=== PATIENT | male | born 1955 | race Caucasian/White ===

== ENCOUNTER 2017-02-24 11:33 | Day surgery (SDC) | payer OTHER, BC ==
[~2017-02-24] VITALS: Ht 172.7 cm; Wt 74.5 kg
[~2017-02-24 11:33] MED LIST: ACET325; AMOCLA875 PO; ASPI81CH PO; Fish Oil500 M1 PO; LIDO2L MM; LISI20; METO50 PO; MORP60ER; MORP60ER PO; Norco 10-325 T1 EACH; OXYACE5T PO; Percocet 5-3251 EACH PO; RXOXYACE PO; TAMS.4ER PO; TRAZ100; Voltaren100 GM
[2017-02-24] MEDS ORDERED: FISH OIL 1,0001 EAC2 PO (11:59)
== END 2017-02-24 15:24 | disposition home or self-care (01) ==
LOC: ORSCSDS 11:33
PROVIDERS: Podiatrist Foot & Ankle Surgery
PROC: 0QBG0ZX Excision of Right Tibia, Open Approach, Diagnostic (ICD-10-PCS; principal; 2017-02-24 12:30)
PROC: 0SBF4ZZ Excision of Right Ankle Joint, Percutaneous Endoscopic Approach (ICD-10-PCS; principal; 2017-02-24 12:30)
PROC: 0SPF04Z Removal of Internal Fixation Device from Right Ankle Joint, Open Approach (ICD-10-PCS; principal; 2017-02-24 12:30)
PROC: 0QBJ0ZX Excision of Right Fibula, Open Approach, Diagnostic (ICD-10-PCS; principal; 2017-02-24 12:30)
DX: M25.771 Osteophyte, right ankle (principal); T84.84XA Pain due to internal orthopedic prosthetic devices, implants and grafts, initial encounter; I10 Essential (primary) hypertension; F17.210 Nicotine dependence, cigarettes, uncomplicated; Z79.899 Other long term (current) drug therapy
CPT/HCPCS: J0171; J0690; J2250; J2370; J2405; J3010; J7120

== ENCOUNTER 2020-01-24 07:51 | Day surgery (SDC) | payer OTHER ==
[~2020-01-24] VITALS: Ht 175.3 cm; Wt 83.7 kg
[~2020-01-24 07:51] MED LIST changes: +DHEA PO; +FISH OIL 1,0001 EAC2 PO; +FISH OIL GUMMI1 EAC1 PO; +Inderal 20 mg T20 MG PO; -LISI20; +LISI20 PO; +PREG150 PO; +PROBIOTIC250 MG PO; +ROSU10TA PO
== END 2020-01-24 10:05 | disposition home or self-care (01) ==
LOC: ORSCSDS 07:51
DX: Z12.11 Encounter for screening for malignant neoplasm of colon (principal); D12.2 Benign neoplasm of ascending colon; D12.3 Benign neoplasm of transverse colon; K57.30 Diverticulosis of large intestine without perforation or abscess without bleeding; K64.8 Other hemorrhoids; Z86.010 Personal history of colon polyps; I10 Essential (primary) hypertension; Z87.891 Personal history of nicotine dependence
CPT/HCPCS: 88305; J2704; J7120

== ENCOUNTER → 2020-07-12 | Outpatient (CLI) | payer OTHER ==
[2020-07-12 15:16] LABS: BASOPHILS ABSOLUTE AUTO 0.04 K/mm3 (0.00-0.23); BASOPHILS PERCENT AUTO 1 % (0-2); EOSINOPHILS ABSOLUTE AUTO 0.09 K/mm3 (0.00-0.68); EOSINOPHILS PERCENT AUTO 2 % (0-6); Hematocrit 42.1 % (37.0-53.0); Hemoglobin 14.3 g/dL (13.5-17.5); IMMATURE GRAN ABSOLUTE AUTO 0.01 K/mm3 (0.00-0.10); IMMATURE GRAN PERCENT AUTO 0 % (0-1); LYMPHOCYTES PERCENT AUTO 35 % (21-46); MONOCYTES ABSOLUTE AUTO 0.46 K/mm3 (0.16-1.47); MONOCYTES PERCENT AUTO 9 % (4-13); Mean Corpuscular HGB 32.1 pg (26.0-34.0); Mean Corpuscular Volume 95 fL (80-100); NEUTROPHILS ABSOLUTE AUTO 2.57 K/mm3 (1.96-9.15); NEUTROPHILS PERCENT AUTO 53 % (41-73); Platelet Count 223 K/mm3 (150-400); Red Blood Cell Count 4.45 M/mm3 (4.30-5.90); White Blood Cell Count 4.87 K/mm3 (4.00-11.30)
[2020-07-12 15:25] LABS: Albumin, Blood 4.2 g/dL (3.4-5.0); Albumin/Globulin Ratio 1.1 (0.8-1.8); Bilirubin, Total 0.5 mg/dL (0.1-1.0); Bun/Creatinine Ratio 24.1 (12.0-20.0); Calcium, Blood 9.2 mg/dL (8.5-10.1); Creatinine, Blood 1.33 mg/dL (0.60-1.20); Potassium, Blood 4.6 mmol/L (3.5-5.5); Total Protein, Blood 8.2 g/dL (6.4-8.2)
== END | disposition home or self-care (01) ==
LOC: LAB EV 15:09 → LAB SHORT 15:09
PROVIDERS: General Practice
DX: R07.89 Other chest pain (principal)
CPT/HCPCS: 80053; 85025; 85379

== ENCOUNTER → 2020-10-18 | Outpatient (CLI) | payer OTHER | LOC: LAB 15:58 → LAB SHORT 15:58 | DX: R07.89 Other chest pain (principal) | CPT/HCPCS: 84484 ==

== ENCOUNTER → 2021-03-14 | Outpatient (CLI) | payer OTHER ==
[2021-03-15 13:30] LABS: Microalbumin, Urine Quant. 18.2 mg/L (0.000-20.000); Protein, Urine Quantitative 17.1 mg/dL (0.0-11.9)
== END | disposition home or self-care (01) ==
LOC: LAB SHORT 10:46
PROVIDERS: Internal Medicine Nephrology
DX: N18.2 Chronic kidney disease, stage 2 (mild) (principal); D63.1 Anemia in chronic kidney disease; R80.9 Proteinuria, unspecified; N40.0 Benign prostatic hyperplasia without lower urinary tract symptoms
CPT/HCPCS: 81050; 82043; 82570; 84156

== ENCOUNTER 2022-04-30 21:13 | Emergency (ER) | payer OTHER ==
[~2022-04-30] VITALS: Ht 175.3 cm; Wt 88.9 kg
[2022-04-30] MEDS ORDERED: POTA8 PO (21:34)
[2022-04-30] MEDS ORDERED: FUROSEMIDE20 MG PO (21:34)
[2022-04-30] MEDS ORDERED: IBUP400 PO (22:40)
[2022-04-30] MEDS ORDERED: ACET500 PO (22:40)
[2022-04-30] MEDS ORDERED: ONDA4ODT MM (22:40)
[2022-04-30] MEDS ORDERED: OMEP20ER PO (22:40)
== END 2022-04-30 22:47 | disposition home or self-care (01) ==
LOC: ER 21:13
DX: S20.211A Contusion of right front wall of thorax, initial encounter (principal); W23.1XXA Caught, crushed, jammed, or pinched between stationary objects, initial encounter; I10 Essential (primary) hypertension; Z87.891 Personal history of nicotine dependence; Z88.6 Allergy status to analgesic agent; Z88.8 Allergy status to other drugs, medicaments and biological substances; Z79.899 Other long term (current) drug therapy; Z79.82 Long term (current) use of aspirin
CPT/HCPCS: 71046; A9270; J1885

== ENCOUNTER 2022-08-30 12:00 | Emergency (ER) | payer OTHER ==
[~2022-08-30] VITALS: Ht 175.3 cm; Wt 88.5 kg
[~2022-08-30 12:00] MED LIST changes: +ACET500 PO; +FUROSEMIDE20 MG PO; +IBUP400 PO; +OMEP20ER PO; +ONDA4ODT MM; +POTA8 PO
[2022-08-30 13:04] LABS: BASOPHILS ABSOLUTE AUTO 0.05 K/mm3 (0.00-0.23); BASOPHILS PERCENT AUTO 0 % (0-2); EOSINOPHILS ABSOLUTE AUTO 0.05 K/mm3 (0.00-0.68); EOSINOPHILS PERCENT AUTO 0 % (0-6); Hematocrit 46.7 % (37.0-53.0); Hemoglobin 15.7 g/dL (13.5-17.5); IMMATURE GRAN ABSOLUTE AUTO 0.04 K/mm3 (0.00-0.10); IMMATURE GRAN PERCENT AUTO 0 % (0-1); LYMPHOCYTES ABSOLUTE AUTO 2.34 K/mm3 (0.84-5.20); LYMPHOCYTES PERCENT AUTO 17 % (21-46); MONOCYTES ABSOLUTE AUTO 0.74 K/mm3 (0.16-1.47); MONOCYTES PERCENT AUTO 5 % (4-13); Mean Corpuscular HGB 31.8 pg (26.0-34.0); Mean Corpuscular HGB Conc 33.6 g/dL (31.5-36.5); Mean Corpuscular Volume 95 fL (80-100); Mean Platelet Volume 11.4 fL (9.1-12.4); NEUTROPHILS ABSOLUTE AUTO 10.36 K/mm3 (1.96-9.15); NEUTROPHILS PERCENT AUTO 76 % (41-73); Platelet Count 180 K/mm3 (150-400); RDW Coefficient Variation 12.6 % (11.7-14.2); RDW Standard Deviation 43.8 fL (35.1-46.3); Red Blood Cell Count 4.94 M/mm3 (4.30-5.90); White Blood Cell Count 13.58 K/mm3 (4.00-11.30)
[2022-08-30 13:12] LABS: Albumin/Globulin Ratio 1.1 (0.8-1.8); Bilirubin, Total 0.5 mg/dL (0.1-1.0); Calcium, Blood 9.2 mg/dL (8.5-10.1); Creatinine, Blood 1.24 mg/dL (0.60-1.20); Globulin, Blood 3.7 g/dL (2.2-4.0); Potassium, Blood 4.4 mmol/L (3.5-5.5); Total Protein, Blood 7.7 g/dL (6.4-8.2)
[2022-08-30 14:55] LABS: International Normalized Ratio 1.04; Prothrombin Time Results 10.9 Sec (9.7-11.5)
[2022-08-30 15:15] VITALS: BP 88/62
== END 2022-08-30 15:35 | disposition short-term general hospital (02) ==
LOC: ER 12:00
PROVIDERS: Physician Assistant; Student in an Organized Health Care Education/Training Program
DX: I71.00 Dissection of unspecified site of aorta (principal); N17.9 Acute kidney failure, unspecified; I10 Essential (primary) hypertension; Z88.6 Allergy status to analgesic agent; Z88.8 Allergy status to other drugs, medicaments and biological substances; Z79.82 Long term (current) use of aspirin; Z79.899 Other long term (current) drug therapy; Z87.891 Personal history of nicotine dependence
CPT/HCPCS: 71045; 71275; 74174; 80053; 83880; 84484; 85025; 85610; 85730; 93005; 93010; 96365-59; 96366-59; 96368; 96375-59; 96376-59; 99291-25; J1170; J2060; J2270; J2405; J3010; J7050; Q9967

== ENCOUNTER 2022-10-13 17:21 | Emergency (ER) | payer OTHER ==
[~2022-10-13] VITALS: Ht 175.3 cm; Wt 83.5 kg
[2022-10-13 18:24] LABS: BASOPHILS ABSOLUTE AUTO 0.03 K/mm3 (0.00-0.23); BASOPHILS PERCENT AUTO 1 % (0-2); EOSINOPHILS ABSOLUTE AUTO 0.11 K/mm3 (0.00-0.68); EOSINOPHILS PERCENT AUTO 2 % (0-6); Hemoglobin 13.1 g/dL (13.5-17.5); IMMATURE GRAN ABSOLUTE AUTO 0.01 K/mm3 (0.00-0.10); IMMATURE GRAN PERCENT AUTO 0 % (0-1); LYMPHOCYTES ABSOLUTE AUTO 1.87 K/mm3 (0.84-5.20); LYMPHOCYTES PERCENT AUTO 33 % (21-46); MONOCYTES ABSOLUTE AUTO 0.43 K/mm3 (0.16-1.47); MONOCYTES PERCENT AUTO 8 % (4-13); Mean Corpuscular HGB 30.3 pg (26.0-34.0); Mean Corpuscular HGB Conc 32.8 g/dL (31.5-36.5); Mean Corpuscular Volume 92 fL (80-100); Mean Platelet Volume 11.1 fL (9.1-12.4); NEUTROPHILS ABSOLUTE AUTO 3.24 K/mm3 (1.96-9.15); NEUTROPHILS PERCENT AUTO 57 % (41-73); Platelet Count 213 K/mm3 (150-400); RDW Coefficient Variation 13.1 % (11.7-14.2); RDW Standard Deviation 44.1 fL (35.1-46.3); Red Blood Cell Count 4.33 M/mm3 (4.30-5.90); White Blood Cell Count 5.69 K/mm3 (4.00-11.30)
[2022-10-13 18:46] LABS: Albumin, Blood 3.9 g/dL (3.4-5.0); Albumin/Globulin Ratio 0.9 (0.8-1.8); Bilirubin, Total 0.4 mg/dL (0.1-1.0); Bun/Creatinine Ratio 18.3 (12.0-20.0); Calcium, Blood 9.6 mg/dL (8.5-10.1); Creatinine, Blood 1.26 mg/dL (0.60-1.20); Globulin, Blood 4.2 g/dL (2.2-4.0); Potassium, Blood 4.3 mmol/L (3.5-5.5); Total Protein, Blood 8.1 g/dL (6.4-8.2)
[2022-10-13] MEDS ORDERED: LIDO700A20 TOP (22:58)
[2022-10-13] MEDS ORDERED: ACET500 PO (22:58)
[2022-10-13 23:00] VITALS: BP 147/86
== END 2022-10-13 23:13 | disposition home or self-care (01) ==
LOC: ER 17:21
PROVIDERS: Physician Assistant
DX: R07.9 Chest pain, unspecified (principal); I10 Essential (primary) hypertension; Z88.8 Allergy status to other drugs, medicaments and biological substances; Z98.890 Other specified postprocedural states; Z79.82 Long term (current) use of aspirin; Z79.899 Other long term (current) drug therapy
CPT/HCPCS: 71275; 74174; 80053; 84484; 85025; 93005; 93010; 99284-25; Q9967

== ENCOUNTER 2022-12-26 13:03 | Emergency (ER) | payer OTHER ==
[~2022-12-26] VITALS: Ht 175.3 cm; Wt 83.5 kg
[~2022-12-26 13:03] MED LIST changes: +LIDO700A20 TOP
[2022-12-26 14:23] LABS: BASOPHILS ABSOLUTE AUTO 0.05 K/mm3 (0.00-0.23); BASOPHILS PERCENT AUTO 1 % (0-2); EOSINOPHILS ABSOLUTE AUTO 0.06 K/mm3 (0.00-0.68); EOSINOPHILS PERCENT AUTO 1 % (0-6); Hematocrit 37.7 % (37.0-53.0); Hemoglobin 12.2 g/dL (13.5-17.5); IMMATURE GRAN ABSOLUTE AUTO 0.01 K/mm3 (0.00-0.10); IMMATURE GRAN PERCENT AUTO 0 % (0-1); LYMPHOCYTES ABSOLUTE AUTO 1.86 K/mm3 (0.84-5.20); LYMPHOCYTES PERCENT AUTO 26 % (21-46); MONOCYTES ABSOLUTE AUTO 0.67 K/mm3 (0.16-1.47); MONOCYTES PERCENT AUTO 9 % (4-13); Mean Corpuscular HGB 29.8 pg (26.0-34.0); Mean Corpuscular HGB Conc 32.4 g/dL (31.5-36.5); Mean Corpuscular Volume 92 fL (80-100); Mean Platelet Volume 10.6 fL (9.1-12.4); NEUTROPHILS ABSOLUTE AUTO 4.64 K/mm3 (1.96-9.15); NEUTROPHILS PERCENT AUTO 64 % (41-73); Platelet Count 346 K/mm3 (150-400); RDW Coefficient Variation 13.3 % (11.7-14.2); RDW Standard Deviation 45.5 fL (35.1-46.3); White Blood Cell Count 7.29 K/mm3 (4.00-11.30)
[2022-12-26 14:49] LABS: Albumin, Blood 3.2 g/dL (3.4-5.0); Albumin/Globulin Ratio 0.7 (0.8-1.8); Bilirubin, Total 0.4 mg/dL (0.1-1.0); Bun/Creatinine Ratio 16.7 (12.0-20.0); Calcium, Blood 9.1 mg/dL (8.5-10.1); Creatinine, Blood 1.08 mg/dL (0.60-1.20); Globulin, Blood 4.9 g/dL (2.2-4.0); Potassium, Blood 4.4 mmol/L (3.5-5.5); Total Protein, Blood 8.1 g/dL (6.4-8.2)
[2022-12-26] MEDS ORDERED: Percocet 5-3251 EACH PO (16:54)
[2022-12-26 17:00] VITALS: BP 131/87
== END 2022-12-26 17:07 | disposition home or self-care (01) ==
LOC: ER 13:03
PROVIDERS: Physician Assistant
DX: G89.18 Other acute postprocedural pain (principal); R07.2 Precordial pain; Z88.8 Allergy status to other drugs, medicaments and biological substances; Z88.6 Allergy status to analgesic agent; Z79.899 Other long term (current) drug therapy; Z79.82 Long term (current) use of aspirin; I10 Essential (primary) hypertension; Z87.891 Personal history of nicotine dependence
CPT/HCPCS: 71046; 71275; 80053; 84484; 85025; 93005; 93010; 96361; 96374; 96375; 96376; 99285-25; J1170; J2405; J7030; Q9967

== ENCOUNTER 2023-04-10 10:43 | Observation (INO) | payer OTHER ==
[~2023-04-10] VITALS: Ht 175.3 cm; Wt 90.2 kg
[2023-04-10] MEDS ORDERED: Morphine Sulfate 4 MG/1 ML Injection IV ONE (11:10)
[2023-04-10] MEDS ORDERED: Ondansetron HCl 2 MG / ML 2ML Vial IV ONE (11:10)
[2023-04-10 11:15] LABS: BASOPHILS ABSOLUTE AUTO 0.04 K/mm3 (0.00-0.23); BASOPHILS PERCENT AUTO 0 % (0-2); EOSINOPHILS ABSOLUTE AUTO 0.01 K/mm3 (0.00-0.68); EOSINOPHILS PERCENT AUTO 0 % (0-6); Hematocrit 46.4 % (37.0-53.0); Hemoglobin 15.5 g/dL (13.5-17.5); IMMATURE GRAN ABSOLUTE AUTO 0.03 K/mm3 (0.00-0.10); IMMATURE GRAN PERCENT AUTO 0 % (0-1); LYMPHOCYTES ABSOLUTE AUTO 1.17 K/mm3 (0.84-5.20); LYMPHOCYTES PERCENT AUTO 11 % (21-46); MONOCYTES ABSOLUTE AUTO 0.55 K/mm3 (0.16-1.47); MONOCYTES PERCENT AUTO 5 % (4-13); Mean Corpuscular HGB 30.6 pg (26.0-34.0); Mean Corpuscular HGB Conc 33.4 g/dL (31.5-36.5); Mean Corpuscular Volume 92 fL (80-100); Mean Platelet Volume 11.1 fL (9.1-12.4); NEUTROPHILS ABSOLUTE AUTO 9.21 K/mm3 (1.96-9.15); NEUTROPHILS PERCENT AUTO 84 % (41-73); Platelet Count 151 K/mm3 (150-400); RDW Coefficient Variation 13.8 % (11.7-14.2); RDW Standard Deviation 46.5 fL (35.1-46.3); Red Blood Cell Count 5.06 M/mm3 (4.30-5.90); White Blood Cell Count 11.01 K/mm3 (4.00-11.30)
[2023-04-10 11:48] LABS: Albumin, Blood 3.8 g/dL (3.4-5.0); Albumin/Globulin Ratio 0.9 (0.8-1.8); Bilirubin, Total 0.5 mg/dL (0.1-1.0); Bun/Creatinine Ratio 22.3 (12.0-20.0); Calcium, Blood 9.6 mg/dL (8.5-10.1); Creatinine, Blood 1.12 mg/dL (0.60-1.20); Globulin, Blood 4.2 g/dL (2.2-4.0); Potassium, Blood 4.3 mmol/L (3.5-5.5)
[2023-04-10] MEDS ORDERED: ELIQUIS5 M2 PO (12:04)
[2023-04-10] MEDS ORDERED: METO25ER PO (12:04)
[2023-04-10] MEDS ORDERED: LISI20 PO (12:05)
[2023-04-10] MEDS ORDERED: COLCHICINE0.6 MG PO (12:05)
[2023-04-10] MEDS ORDERED: FURO20 PO (12:05)
[2023-04-10] MEDS ORDERED: Isosorbide Mono30 MG PO (12:05)
[2023-04-10 12:11] LABS: Source, Urine Clean Catch
[2023-04-10 12:31] LABS: Appearance, Urine Clear (Clear); Bilirubin, Urine Neg (Neg); Blood, Urine 1+ (Neg); Color, Urine Yellow (P-Yellow); Glucose Qualitative, Urine Neg (Neg); Ketones, Urine Neg (Neg); Leukocyte Esterase, Urine Neg (Neg); Nitrite, Urine Neg (Neg); Protein, Urine Neg (Neg); Specific Gravity, Urine 1.015 (1.003-1.022); Urobilinogen, Urine NORM (Normal)
[2023-04-10 12:39] LABS: Bacteria Not Seen /hpf; Squamous Epithelial Cells Not Seen /hpf (Few); White Blood Cells, Urine Not Seen /hpf (0-5)
[2023-04-10] MEDS ORDERED: Piperacillin/Tazobactam Sod 3.375 GM in NS 50 ML IV ONE (12:40)
[2023-04-10] MEDS ORDERED: OxyCODONE HCL 5 MG TAB PO PRN (13:50)
[2023-04-10] MEDS ORDERED: FLU VACC QS2023-24(6MOS UP)/PF 60 MCG/0.5 ML SYRINGE IM SCH (13:55)
[2023-04-10] MEDS ORDERED: Pregabalin 75 MG Cap PO SCH (14:00)
[2023-04-10] MEDS ORDERED: NS 1,000 ML IV SCH (14:10)
[2023-04-10 15:11] VITALS: BP 123/76
[2023-04-10] MEDS ORDERED: Ampicillin Sod/Sulbactam Sod 3 GM in NS 100 ML IV SCH (18:00)
--- NOTE | 2023-04-10 18:15 | NUR ---
SHIFT SUMMARY PATIENT IS AOX4 IND IN ROOM. USES CALL LIGHT APPROPRIATELY. IS ABLE TO MAKE NEEDS KNOWN. NPO AFTER MIDNIGHT. IV FLUIDS RUNNING, ABX INFUSED. VSS. CALL LIGHT IN REACH.
[2023-04-10] MEDS ORDERED: TAMS.4ER PO (18:30)
[2023-04-10 19:27] VITALS: BP 107/77
[2023-04-10] MEDS ORDERED: Acetaminophen 500 MG Tab PO PRN (19:50)
[2023-04-10] MEDS ORDERED: Ondansetron HCl 2 MG / ML 2ML Vial IV PRN (20:35)
[2023-04-10] MEDS ORDERED: Metoprolol Succinate 50 MG TABCR PO SCH (21:00)
[2023-04-10] MEDS ORDERED: Sennosides 8.6 MG Tab PO SCH (21:00)
[2023-04-10] MEDS ORDERED: Rosuvastatin Calcium 10 MG Tab PO SCH (21:00)
[2023-04-11] VITALS (15 sets, daily range): BP systolic 92–146; BP diastolic 65–97
--- NOTE | 2023-04-11 04:06 | NUR ---
SHIFT SUMMARY PT RESTED WELL T/O SHIFT. NO ACUTE CHANGES. NPO SINCE MIDNIGHT. IVF + ABX PER ORDERS. 1 PAIN PILL + TYLENOL FOR PAIN MANAGEMENT PRN. X1 ZOFRAN FOR NAUSEA. INDEP TO RESTROOM. USES CALL LIGHT APPROPRIATELY.
[2023-04-11 04:27] LABS: BASOPHILS ABSOLUTE AUTO 0.03 K/mm3 (0.00-0.23); BASOPHILS PERCENT AUTO 0 % (0-2); EOSINOPHILS ABSOLUTE AUTO 0.05 K/mm3 (0.00-0.68); EOSINOPHILS PERCENT AUTO 1 % (0-6); Hematocrit 45.9 % (37.0-53.0); Hemoglobin 14.8 g/dL (13.5-17.5); IMMATURE GRAN ABSOLUTE AUTO 0.02 K/mm3 (0.00-0.10); IMMATURE GRAN PERCENT AUTO 0 % (0-1); LYMPHOCYTES ABSOLUTE AUTO 1.55 K/mm3 (0.84-5.20); LYMPHOCYTES PERCENT AUTO 22 % (21-46); MONOCYTES ABSOLUTE AUTO 0.42 K/mm3 (0.16-1.47); MONOCYTES PERCENT AUTO 6 % (4-13); Mean Corpuscular HGB 30.2 pg (26.0-34.0); Mean Corpuscular HGB Conc 32.2 g/dL (31.5-36.5); Mean Corpuscular Volume 94 fL (80-100); Mean Platelet Volume 11.5 fL (9.1-12.4); NEUTROPHILS ABSOLUTE AUTO 4.96 K/mm3 (1.96-9.15); NEUTROPHILS PERCENT AUTO 71 % (41-73); Platelet Count 133 K/mm3 (150-400); RDW Coefficient Variation 14.1 % (11.7-14.2); RDW Standard Deviation 47.7 fL (35.1-46.3); White Blood Cell Count 7.03 K/mm3 (4.00-11.30)
[2023-04-11 04:47] LABS: Albumin, Blood 3.5 g/dL (3.4-5.0); Albumin/Globulin Ratio 0.9 (0.8-1.8); Bilirubin, Total 0.6 mg/dL (0.1-1.0); Bun/Creatinine Ratio 15.8 (12.0-20.0); Calcium, Blood 8.8 mg/dL (8.5-10.1); Creatinine, Blood 1.14 mg/dL (0.60-1.20); Globulin, Blood 3.9 g/dL (2.2-4.0); Potassium, Blood 4.2 mmol/L (3.5-5.5); Total Protein, Blood 7.4 g/dL (6.4-8.2)
[2023-04-11] MEDS ORDERED: Omeprazole 20 MG CapCR PO SCH (06:00)
[2023-04-11] MEDS ORDERED: Furosemide 20 MG Tab PO SCH (09:00)
[2023-04-11] MEDS ORDERED: Isosorbide Mononitrate 30 MG TABCR PO SCH (09:00)
[2023-04-11] MEDS ORDERED: Colchicine 0.6 MG TAB PO SCH (09:00)
[2023-04-11] MEDS ORDERED: Lisinopril 20 MG Tab PO SCH (09:00)
[2023-04-11] MEDS ORDERED: Tamsulosin HCl 0.4 MG Cap PO SCH (09:00)
[2023-04-11] MEDS ORDERED: Lactated Ringer's 1,000 ML IV SCH (13:40)
[2023-04-11] MEDS ORDERED: Bupivacaine 0.5% HCl 5 MG/ML 30MLVIAL ONE (14:02)
[2023-04-11] MEDS ORDERED: FentaNYL Citrate 50 MCG/ML 2 ML Injection IV PRN ×3 (14:15→14:20)
[2023-04-11] MEDS ORDERED: Sugammadex Sodium 200 MG/2ML SDV (100 MG/ML) ONE (14:15)
[2023-04-11] MEDS ORDERED: propofoL 20 ML IV ONE (14:15)
[2023-04-11] MEDS ORDERED: Rocuronium Bromide 10 MG/ML 5ML Injection IV ONE (14:15)
[2023-04-11] MEDS ORDERED: FentaNYL Citrate 50 MCG/ML 2 ML Injection ONE (14:15)
[2023-04-11] MEDS ORDERED: Dexamethasone Sod Phos 10 MG/ML 1ML VIAL ONE (14:15)
[2023-04-11] MEDS ORDERED: Ondansetron HCl 2 MG / ML 2ML Vial ONE (14:15)
[2023-04-11] MEDS ORDERED: Lidocaine HCl 1% 5 ML SYR INJ ONE (14:20)
[2023-04-11] MEDS ORDERED: Ondansetron HCl 2 MG / ML 2ML Vial IV PRN (14:20)
[2023-04-11] MEDS ORDERED: HYDROmorphone HCl/Pf 1MG SYR IV PRN (14:20)
[2023-04-11] MEDS ORDERED: Midazolam HCl 1MG / ML 2ML Vial IV PRN (14:20)
[2023-04-11] MEDS ORDERED: Phenylephrine HCl 100 MCG/ML-NS 10MLSYR (1MG/10ML) ONE (15:50)
[2023-04-11] MEDS ORDERED: HYDROmorphone HCl/Pf 1MG SYR ONE ×2 (16:26→16:40)
--- NOTE | 2023-04-11 17:23 | NUR ---
SHIFT SUMMARY S/P LAP APPY PT BACK FROM PACU AT 1700. REPORTS MINIMAL INCISIONAL PAIN, DENIES NAUSEA. TOLERATING WATER AND CRACKERS AT THIS TIME. EDUCATED ON TAKING IT SLOW AND NOTIFYING IF HIS PAIN INCREASES OR HE BECOMES NAUSEOUS. AA0X4. ON 2L AT THIS TIME WILL TITRATE DOWN TOLERATED. 3 LAP SITES, MIDLINE WITH GAUZE AND TEGADERM. CDI. LEFT MOST INCISION HAS DRIED SANGUINOUS DRAINAGE ON IT. CALL LIGHT IN REACH. FAMILY AT BEDSIDE.
[2023-04-11] MEDS ORDERED: Prochlorperazine Edisylate 10 mg Vial IV PRN (19:45)
--- NOTE | 2023-04-12 04:31 | NUR ---
SHIFT SUMMARY S/P LAP APPY. LAP SITES X3 TO ABD REMAIN CDI. PT NAUSEATED AT START OF SHIFT, BUT IMPROVED AFTER ANTIEMETIC. NO NAUSEA SINCE. ABLE TO TOLERATE REG DIET AFTER. 1 ROXICODONE FOR PAIN MANAGEMENT X1. INDEP TO RESTROOM. IVF + ABX PER ORDERS. PT PLANNING TO DISCHARGE HOME TODAY. USES CALL LIGHT APPROPRIATELY.
[2023-04-12 05:02] VITALS: BP 116/81
[2023-04-12 07:17] VITALS: BP 124/77
[2023-04-12 07:45] LABS: BASOPHILS PERCENT AUTO 0 % (0-2); EOSINOPHILS PERCENT AUTO 0 % (0-6); Hematocrit 43.6 % (37.0-53.0); Hemoglobin 15.1 g/dL (13.5-17.5); IMMATURE GRAN ABSOLUTE AUTO 0.01 K/mm3 (0.00-0.10); IMMATURE GRAN PERCENT AUTO 0 % (0-1); LYMPHOCYTES ABSOLUTE AUTO 0.71 K/mm3 (0.84-5.20); LYMPHOCYTES PERCENT AUTO 11 % (21-46); MONOCYTES ABSOLUTE AUTO 0.32 K/mm3 (0.16-1.47); MONOCYTES PERCENT AUTO 5 % (4-13); Mean Corpuscular HGB 31.1 pg (26.0-34.0); Mean Corpuscular HGB Conc 34.6 g/dL (31.5-36.5); Mean Corpuscular Volume 90 fL (80-100); Mean Platelet Volume 11.4 fL (9.1-12.4); NEUTROPHILS ABSOLUTE AUTO 5.34 K/mm3 (1.96-9.15); NEUTROPHILS PERCENT AUTO 84 % (41-73); Platelet Count 150 K/mm3 (150-400); RDW Coefficient Variation 13.5 % (11.7-14.2); RDW Standard Deviation 44.5 fL (35.1-46.3); Red Blood Cell Count 4.85 M/mm3 (4.30-5.90); White Blood Cell Count 6.38 K/mm3 (4.00-11.30)
[2023-04-12 08:01] LABS: Bun/Creatinine Ratio 19.3 (12.0-20.0); Calcium, Blood 8.9 mg/dL (8.5-10.1); Creatinine, Blood 0.93 mg/dL (0.60-1.20); Potassium, Blood 4.3 mmol/L (3.5-5.5)
[2023-04-12] MEDS ORDERED: OXYC5 PO (08:34)
--- NOTE | 2023-04-12 09:19 | NUR ---
DISCHARGE NOTE: PATIENT WAS EDUCATED ON DISCHARGE INSTRUCTIONS. PATIENT VERBALIZED UNDERSTANDING OF INSTRUCTIONS AND HAD NO FURTHER QUESTIONS AT THIS TIME. HARD PERSCRIPTION WAS PLACED INSIDE DISCHARGE FOLDER WHICH IS WITH PATIENT. PATIENT HAS X3 ABD LAP SITES WITH X2 HAVE STERI STRIPS AND X1 HAS GAUZE AND TEGADERM THAT ARE ALL C/D/I. PATIENT IS TOLERATING PO INTAKE AND IS VOIDING/PASSING GAS. PAIN IS MANAGED WITH PO PAIN MEDS. IV WAS TAKEN OUT AND WNL. PATIENT IS DRESSED AND HAS ALL PERSONAL ITEMS IN THE ROOM GATHERED. HE IS BEING WHEELCHAIRED OUT TO A FAMILY MEMBERS CAR TO BE TAKEN HOME.
== END 2023-04-12 09:30 | disposition home or self-care (01) ==
LOC: ER 10:43 → SURS 10:44
PROVIDERS: Student in an Organized Health Care Education/Training Program; Surgery; ADMIT Internal Medicine
PROC: 0DTJ0ZZ Resection of Appendix, Open Approach (ICD-10-PCS; principal; 2023-04-11 14:30)
DX: K37 Unspecified appendicitis (principal); J44.9 Chronic obstructive pulmonary disease, unspecified; E78.5 Hyperlipidemia, unspecified; I73.9 Peripheral vascular disease, unspecified; I48.0 Paroxysmal atrial fibrillation; I13.0 Hypertensive heart and chronic kidney disease with heart failure and stage 1 through stage 4 chronic kidney disease, or unspecified chronic kidney disease; I50.22 Chronic systolic (congestive) heart failure; N18.30 Chronic kidney disease, stage 3 unspecified; N40.0 Benign prostatic hyperplasia without lower urinary tract symptoms; Z88.8 Allergy status to other drugs, medicaments and biological substances; Z88.5 Allergy status to narcotic agent; Z79.899 Other long term (current) drug therapy
CPT/HCPCS: 36415; 74174; 80048; 80053; 81001; 83690; 85025; 93005; 93010; 96365-59; 96375-59; 99285-25; A9270; J0295; J0780; J1100; J1170; J2250; J2270; J2371; J2405; J2543; J2704; J3010; J7030; J7120; Q9967

== ENCOUNTER → 2024-10-22 | Outpatient (CLI) | payer OTHER ==
[~2024-10-22] MED LIST changes: +COLCHICINE0.6 MG PO; +ELIQUIS5 M2 PO; +FURO20 PO; +Isosorbide Mono30 MG PO; +METO25ER PO; +OXYC5 PO
[2024-10-22 19:22] LABS: Creatinine, Urine Random 174.0 mg/dL (27.00-270.00); Microalb/Creat Ratio UR, Rand 9.77 mg/g (0.000-30.000); Microalbumin, Random Urine 17.0 mg/L (0.000-20.000)
== END ==
LOC: LAB SHORT 13:31 → LAB 13:31
PROVIDERS: Physician Assistant Medical
DX: I11.0 Hypertensive heart disease with heart failure (principal); I50.32 Chronic diastolic (congestive) heart failure
CPT/HCPCS: 82043; 82570